=== PATIENT | female | born 1985 | race Caucasian/White ===

== ENCOUNTER → 2018-07-03 13:34 | Outpatient (CLI) | payer BC ==
--- NOTE | ~2018-07-03 | ST ---
PATIENT:AILYN WELCH MEDICAL RECORD: [id number] SEX: F LOCATION:[facility] ORDER #: ADMISSION DATE: 07/03/18 AGE OF PATIENT: 33 REFERRING PHYSICIAN: INTERPRETING PHYSICIAN: RUBEN VENTURA MD DATE OF SERVICE: 07/03/2018 PROCEDURE: Exercise stress test. INDICATION: Chest pain, shortness of breath. She was exercised on standard Jos protocol for 5 minutes 30 seconds achieving 100% max target heart rate response with no EKG changes and no dysrhythmias. OVERALL IMPRESSION: Negative for inducible ischemia at adequate cardiac workload. TRANSINT:[id number] Voice Confirmation ID: [id number] DOCUMENT ID: [id number] RUBEN VENTURA MD CC: [id number] DICTATION DATE: 07/03/18 1607 DENTAL HYGIENE TEACHER: 07/04/[address] [facility] CLI 07/03/[address] [id number]
== END | disposition home or self-care (01) ==
LOC: D.HCCARDIO 13:34
PROVIDERS: ATTEND Internal Medicine Cardiovascular Disease
DX: R07.2 Precordial pain (principal)